=== PATIENT | male | born 1950 | race American Indian/Alaskan Native ===

== ENCOUNTER 2019-12-17 06:07 | Day surgery (SDC) | payer MEDICARE, OTHER ==
[~2019-12-17 06:07] MED LIST: Midazolam 1 MG/ML 2 ML SDV ONE; fentaNYL 100 MCG/2 ML SDV ONE
[2019-12-17] MEDS ORDERED: Dextrose 5%-0.45% NaCl 1,000 ML IV SCH (07:05)
[2019-12-17] MEDS ORDERED: fentaNYL 100 MCG/2 ML SDV IV ONE ×2 (07:36→07:37)
[2019-12-17] MEDS ORDERED: Midazolam 1 MG/ML 2 ML SDV IV ONE ×2 (07:37→07:38)
--- NOTE | 2019-12-17 10:31 | OR ---
DATE: 12/17/2019 PROCEDURES: Esophagogastroduodenoscopy and multiple pinch biopsies. INSTRUMENT USED: [id number]-HQ190 Olympus video panendoscope. PREMEDICATIONS: No oral or topical anesthesia used. Fentanyl 100 mcg intravenous, Versed 2 mg intravenous, nasal O2 cannula. The procedure was done under pulse oximetry, BP recording, and nurse monitoring. INDICATION: The patient with longstanding difficulties of heartburn and dyspepsia with recent diarrhea, unexplained and not responsive to medical measures, on long-term PPI. Esophagogastroduodenoscopy is for prompt detection of any active erosive lesions, Dawn esophagus and/or malignancy also under consideration, H pylori status to be determined, small bowel biopsies to be obtained for celiac disease if indicated, endoscopic hemostasis therapy if needed. PROCEDURE IN DETAIL: The scope was passed with ease. Adequate visualization of the esophagus was made from proximal to distal areas. No upper esophageal lesions identified. No distal esophageal stricture. No uphill or downhill esophageal varices. No Mei-Martinez tear. No evidence of erosive esophagitis by [place] criteria. No esophageal polyp or tumor mass identified. Z-line was seen at around 40 cm distal to the oral verge, configuration consistent with grade 1 by ZAP classification. No proximal gastric varices noted. Gastric fundus examination by retroflexion showed no polypoid lesions. No gastric ulcer, malignant mass, or vascular ectasia identified. Duodenal bulb showed no ulcer. Visualized second part of the duodenum was unremarkable. Multiple pinch biopsies, 4 in number, were taken from different areas of the second part of the duodenum, and tissues were also obtained from the duodenal bulb at 9 and 12 o'clock positions and sent for any histopathologic evidence of celiac disease. Multiple pinch biopsies were also taken from the gastric antrum and proximal body and sent for PyloriTek test for H pylori and histopathology. No bleeding was noted from any of the visualized areas at the completion of examination. Photographs were taken of the duodenal bulb, gastric antrum, fundus, and distal esophagus. IMPRESSION: Normal study. The patient tolerated the procedure well. [facility] /[id number]
== END 2019-12-17 09:50 | disposition home or self-care (01) ==
LOC: DL.ENDO 06:07
PROVIDERS: ATTEND Internal Medicine Gastroenterology
DX: R10.13 Epigastric pain (principal); R19.7 Diarrhea, unspecified; E66.09 Other obesity due to excess calories; I10 Essential (primary) hypertension; E78.5 Hyperlipidemia, unspecified; K21.9 Gastro-esophageal reflux disease without esophagitis; F10.21 Alcohol dependence, in remission; F32.9 Major depressive disorder, single episode, unspecified; I25.10 Atherosclerotic heart disease of native coronary artery without angina pectoris; Z95.5 Presence of coronary angioplasty implant and graft; Z98.52 Vasectomy status; Z98.890 Other specified postprocedural states; Z87.891 Personal history of nicotine dependence; Z87.828 Personal history of other (healed) physical injury and trauma; Z79.899 Other long term (current) drug therapy; Z90.89 Acquired absence of other organs; Z68.29 Body mass index [BMI] 29.0-29.9, adult
CPT/HCPCS: 43239; 87077; J2250; J3010; J7042

== ENCOUNTER 2020-01-01 06:12 | Day surgery (SDC) | payer MEDICARE, OTHER, SELFPAY ==
[~2020-01-01 06:12] MED LIST changes: +Dextrose 5%-0.45% NaCl 1,000 ML IV SCH; -Midazolam 1 MG/ML 2 ML SDV ONE; +Sodium Chloride 0.9% 10 ML Syringe FLUSH PRN; -fentaNYL 100 MCG/2 ML SDV ONE
[2020-01-01] MEDS ORDERED: Midazolam 1 MG/ML 2 ML SDV IV ONE ×7 (06:13→07:49)
[2020-01-01] MEDS ORDERED: fentaNYL 100 MCG/2 ML SDV IV ONE ×4 (06:13→07:49)
[2020-01-01] MEDS ORDERED: Midazolam 1 MG/ML 2 ML SDV ONE (06:22)
[2020-01-01] MEDS ORDERED: fentaNYL 100 MCG/2 ML SDV ONE (06:23)
--- NOTE | 2020-01-01 09:27 | OR ---
DATE: 01/01/2020 PROCEDURE: Total colonoscopy, terminal ileoscopy, and multiple pinch biopsies. INSTRUMENT USED: [id number]-H190DL Olympus video colonoscope. PREMEDICATIONS: Fentanyl 125 mcg intravenous, Versed 4 mg intravenous. Nasal O2 cannula. The procedure was done under pulse oximetry, BP recording, and landing man. INDICATION: The patient with chronic diarrhea, unexplained and not responsive to medical measures. Colonoscopic examination is done for detection of any polypoid lesions and removal, biopsies to be obtained for microscopic colitis, endoscopic hemostasis therapy if needed. DESCRIPTION OF PROCEDURE: Initial rectal exam was unremarkable. Rigid anoscopy was normal. The colonoscope was passed with ease. Numerous scattered diverticula were noted in the distal left colon along with deformity. The scope was passed with ease up to and beyond the ileocecal junction to visualize normal- appearing terminal ileum. Photographs were taken of the terminal ileum and cecum. Multiple pinch biopsies were obtained from the terminal ileum and sent for histopathology. No bleeding was noted from any of the visualized areas at the commencement of the examination. The bowel preparation was found to be adequate, English scale 2 in all the areas, total score 6. No stricture. No vascular ectasia. No large isolated ulcerations seen. No evidence of diffuse inflammatory bowel disease in the form of friability, contact bleeding, or ulcerations. No polyp or tumor mass identified. Probing the proximal sides of folds and flexures using adequate distention and clearing up stool material, withdrawal of the scope was made. Multiple pinch biopsies were taken from the normal-appearing mucosa of mid transverse colon, mid descending colon, and rectosigmoid, and sent for any histopathologic evidence of microscopic colitis. No bleeding was noted from any of the visualized areas at the completion of the examination. IMPRESSION: Diverticulosis. The patient tolerated the procedure well. [facility] /[id number]
== END 2020-01-01 08:48 | disposition home or self-care (01) ==
LOC: DL.ENDO 06:12
PROVIDERS: ATTEND Internal Medicine Gastroenterology
DX: K52.9 Noninfective gastroenteritis and colitis, unspecified (principal); K57.30 Diverticulosis of large intestine without perforation or abscess without bleeding; E66.09 Other obesity due to excess calories; I10 Essential (primary) hypertension; E78.5 Hyperlipidemia, unspecified; I25.10 Atherosclerotic heart disease of native coronary artery without angina pectoris; F32.9 Major depressive disorder, single episode, unspecified; Z86.010 Personal history of colon polyps; Z95.5 Presence of coronary angioplasty implant and graft; Z90.49 Acquired absence of other specified parts of digestive tract; Z68.29 Body mass index [BMI] 29.0-29.9, adult
CPT/HCPCS: 45380; J2250; J3010; J7042; 88305